=== PATIENT | male | born 1980 | race Caucasian/White ===

== ENCOUNTER 2020-02-02 05:23 | Emergency (ER) | payer OTHER ==
[~2020-02-02] VITALS: Ht 177.8 cm; Wt 104.3 kg
--- NOTE | 2020-02-02 05:41 | NUR ---
PT AAOX4. BIBSELF C/O L SHOULDER PAIN S/P GLF. "I FELL, I GOT UP SO FAST DURING EARTHQUAKE." PLACED ON MONITOR AND PULSE OX. VSS. AWAITING MD FOR EVAL AND ORDERS. AWAITING ORDERS.
[2020-02-02] MEDS ORDERED: HYDROCODONE/APAP 5/325MG 1 EACH TABLET ONE (05:49)
[2020-02-02] MEDS ORDERED: HYDROCODONE/APAP 5/325MG 1 EACH TABLET PO ONE (06:00)
--- NOTE | 2020-02-02 06:00 | NUR ---
XRAY AT BEDSIDE
[2020-02-02] MEDS ORDERED: PROPOFOL 0 ML ONE (06:22)
[2020-02-02] MEDS ORDERED: PROPOFOL 0 ML IV ONE (06:25)
[2020-02-02] MEDS ORDERED: FENTANYL PF 100MCG/2ML AMPUL ONE (06:26)
[2020-02-02] MEDS ORDERED: MIDAZOLAM 50 MG/10 ML VIAL ONE (06:26)
[2020-02-02] MEDS ORDERED: FENTANYL PF 100MCG/2ML AMPUL IV ONE (06:30)
[2020-02-02] MEDS ORDERED: MIDAZOLAM HCL 2 MG/2ML VIAL IV ONE (06:30)
--- NOTE | 2020-02-02 06:34 | NUR ---
LINE INITIATED RAC 20G FOR SHOULDER REDUCTION
--- NOTE | 2020-02-02 06:48 | NUR ---
MD AT BEDSIDE FOR L SHOULDER REDUCTION
--- NOTE | 2020-02-02 07:00 | NUR ---
SECOND XRAY AT BEDSIDE
--- NOTE | 2020-02-02 07:03 | NUR ---
Patient is resting comfortably in bed. Easily aroused. VSS.
--- NOTE | 2020-02-02 07:12 | NUR ---
REPORT RECEIVED FROM ZAID CLARKE FOR RAMYA, PATIENT AAO x 4, 5/10 PS ON L SHOULDER, RESTING COMFORTABLY, HOOKED TO PRE BILLING CLINICIAN AND POX, VSS, NOTED NORMAL SINUS RHYTHM...WILL CONTINUE TO MONITOR.
--- NOTE | 2020-02-02 08:11 | NUR ---
IV removed. Catheter intact and site benign. Pressure and 4x4 applied to site. No bleeding noted.Patient discharged to home in stable condition. Written and verbal after care instructions given. Patient verbalizes understanding of instruction.
[2020-02-02 08:13] VITALS: BP 129/86
--- NOTE | 2020-02-02 08:13 | NUR ---
PATIENT PICKED UP BY GIRLFRIEND WAITING IN PARKING LOT.
== END 2020-02-02 08:13 | disposition home or self-care (01) ==
LOC: ER 05:23
DX: S43.085A Other dislocation of left shoulder joint, initial encounter (principal); W18.39XA Other fall on same level, initial encounter; Y93.89 Activity, other specified; Y92.89 Other specified places as the place of occurrence of the external cause; Y99.8 Other external cause status
CPT/HCPCS: 23650; 73020; 73030; 99152; 99285; J2250; J3010; J7030; G0500; J2704; J3490